=== PATIENT | female | born 1975 | race African-American/Black ===

== ENCOUNTER 2021-05-15 11:08 | Day surgery (SDC) | payer OTHER ==
[2021-05-14 16:46] VITALS: BMI 34.5
[2021-05-15 13:27] VITALS: PULSE 84
[2021-05-15 13:46] VITALS: BP 112/73; TEMP 97.7
== END 2021-05-15 13:45 | disposition home or self-care (01) ==
LOC: FASU-ENDO 11:08
PROVIDERS: ATTEND Internal Medicine Gastroenterology
PROC: 0DBK8ZX Excision of Ascending Colon, Via Natural or Artificial Opening Endoscopic, Diagnostic (ICD-10-PCS; principal; 2021-05-15)
PROC: 0DBL8ZX Excision of Transverse Colon, Via Natural or Artificial Opening Endoscopic, Diagnostic (ICD-10-PCS; 2021-05-15)
PROC: 0DBP8ZZ Excision of Rectum, Via Natural or Artificial Opening Endoscopic (ICD-10-PCS; 2021-05-15)
PROC: 0DBM8ZX Excision of Descending Colon, Via Natural or Artificial Opening Endoscopic, Diagnostic (ICD-10-PCS; 2021-05-15)
DX: K92.1 Melena (principal); K64.1 Second degree hemorrhoids; K63.89 Other specified diseases of intestine; R19.7 Diarrhea, unspecified
CPT/HCPCS: 84703; 88305-TC

== ENCOUNTER 2021-07-24 10:42 | Day surgery (SDC) | payer OTHER ==
[2021-07-16 15:37] VITALS: BMI 34.9
[2021-07-24] MEDS ORDERED: PROPOFOL 20 ML ONE ×2 (11:06)
[2021-07-24 12:41] VITALS: BP 116/76; PULSE 82; TEMP 98
== END 2021-07-24 12:40 | disposition home or self-care (01) ==
LOC: FASU-ENDO 10:42
PROVIDERS: ATTEND Internal Medicine Gastroenterology
PROC: 0DB68ZX Excision of Stomach, Via Natural or Artificial Opening Endoscopic, Diagnostic (ICD-10-PCS; 2021-07-24)
PROC: 0DB48ZX Excision of Esophagogastric Junction, Via Natural or Artificial Opening Endoscopic, Diagnostic (ICD-10-PCS; 2021-07-24)
PROC: 0DB98ZX Excision of Duodenum, Via Natural or Artificial Opening Endoscopic, Diagnostic (ICD-10-PCS; principal; 2021-07-24 11:52)
DX: K29.50 Unspecified chronic gastritis without bleeding (principal); K20.90 Esophagitis, unspecified without bleeding; R10.13 Epigastric pain
CPT/HCPCS: 81025; 88305-TC; 88342-TC